=== PATIENT | male | born 1985 | race Caucasian/White ===

== ENCOUNTER 2016-09-30 06:43 | Emergency (ER) | payer OTHER ==
[~2016-09-30] VITALS: Ht 177.8 cm; Wt 100.0 kg
[~2016-09-30 06:43] MED LIST: ZOFRAN4 MG/TAB PO
[2016-09-30] MEDS ORDERED: KEFLEX500 MG PO (07:24)
[2016-09-30] MEDS ORDERED: BENADRYL25 M1 PO (07:24)
[2016-09-30 07:34] VITALS: BP 131/76
== END 2016-09-30 07:34 | disposition home or self-care (01) | DRG 866 ==
LOC: ED 06:43
DX: B34.9 Viral infection, unspecified (principal); K21.9 Gastro-esophageal reflux disease without esophagitis

== ENCOUNTER 2017-01-29 15:16 | Emergency (ER) | payer OTHER ==
[~2017-01-29] VITALS: Ht 177.8 cm; Wt 100.0 kg
[~2017-01-29 15:16] MED LIST changes: +BENADRYL25 M1 PO; +KEFLEX500 MG PO
[2017-01-29] MEDS ORDERED: NEXIUM40 M1 PO (15:37)
[2017-01-29 16:47] LABS: HEMATOCRIT 44.1 % (39.0-50.0); HEMOGLOBIN 15.2 g/dl (14.0-18.0); IMMATURE GRANULOCYTES 0.3 % (0.0-1.0); MEAN CELL VOLUME 88.2 fL CALC (80.0-100.0); MEAN CORPUSCULAR HGB 30.4 pG CALC (26.0-32.0); MEAN CORPUSCULAR HGB CONC 34.5 g/L CALC (32.0-36.0); NEUT# 3.6 thou/uL (1.82-7.42)
[2017-01-29 17:12] LABS: ALBUMIN 4.5 g/dL (3.2-5.0); ALKALINE PHOSPHATASE 67 u/l (38-126); AMYLASE 53 u/l (30-110); ANION GAP 18 (6-22 (CALC)); BILIRUBIN, TOTAL 0.5 mg/dL (0.0-1.4); BUN 14 mg/dL (9-20); BUN/CREATININE RATIO 18 (12-20 (CALC)); CALCIUM 9.7 mg/dL (8.4-10.2); CARBON DIOXIDE 25 mmol/l (22-30); CHLORIDE 105 mmol/l (95-108); CREATININE 0.8 mg/dL (0.7-1.3); GFR > 60 ML/MIN (>=60 (CALC)); GFR FOR AFR.AMER. > 60 ML/MIN (>=60 (CALC)); GLUCOSE 87 mg/dL (75-110); LIPASE 78 u/l (23-300); POTASSIUM 4.7 mmol/l (3.5-5.1); SGOT/AST 34 u/l (17-59); SGPT/ALT 52 u/l (21-72); SODIUM 143 mmol/l (137-146); TOTAL PROTEIN 7.6 g/dL (6.3-8.2)
[2017-01-29] MEDS ORDERED: RANITIDINE 150150 MG PO (18:18)
[2017-01-29 18:24] VITALS: BP 149/70
[2017-01-29 18:53] LABS: URINE BILIRUBIN - DIPSTICK NEGATIVE (NEGATIVE); URINE BLOOD DIPSTICK NEGATIVE (NEGATIVE); URINE CLARITY CLEAR; URINE COLOR YELLOW; URINE GLUCOSE - DIPSTICK NEGATIVE (NEGATIVE); URINE KETONE NEGATIVE (NEGATIVE); URINE LEUK ESTERASE NEGATIVE (NEGATIVE); URINE NITRITE - DIPSTICK NEGATIVE (Negative); URINE PH 5.5 (4.5-8.0); URINE PROTEIN - DIPSTICK NEGATIVE (NEG-TRACE); URINE SPECIFIC GRAVITY 1.025; URINE UROBILINOGEN - DIPSTICK 0.2 E.U./dL (0.2)
== END 2017-01-29 18:45 | disposition home or self-care (01) | DRG 392 ==
LOC: ED 15:16
PROVIDERS: Family Medicine
DX: R10.13 Epigastric pain (principal); K21.9 Gastro-esophageal reflux disease without esophagitis; R10.32 Left lower quadrant pain; R10.12 Left upper quadrant pain
CPT/HCPCS: Q9967

== ENCOUNTER 2017-05-13 07:07 | Emergency (ER) | payer OTHER ==
[~2017-05-13] VITALS: Ht 177.8 cm; Wt 110.0 kg
[~2017-05-13 07:07] MED LIST changes: +NEXIUM40 M1 PO; +RANITIDINE 150150 MG PO
[2017-05-13 07:49] LABS: HEMOGLOBIN 16.1 g/dl (14.0-18.0); IMMATURE GRANULOCYTES 0.5 % (0.0-1.0); MEAN CELL VOLUME 86.1 fL CALC (80.0-100.0); MEAN CORPUSCULAR HGB 30.1 pG CALC (26.0-32.0); NEUT# 10.19 thou/uL (1.82-7.42); RED BLOOD COUNT 5.34 mill/uL (4.70-6.10); RED CELL DISTRI WIDTH 11.9 % (11.5-15.5)
[2017-05-13 08:00] LABS: ALBUMIN 4.9 g/dL (3.2-5.0); ALKALINE PHOSPHATASE 85 u/l (38-126); AMYLASE 57 u/l (30-110); ANION GAP 18 (6-22 (CALC)); BILIRUBIN, TOTAL 0.7 mg/dL (0.0-1.4); BUN 18 mg/dL (9-20); BUN/CREATININE RATIO 20 (12-20 (CALC)); CALCIUM 9.8 mg/dL (8.4-10.2); CARBON DIOXIDE 25 mmol/l (22-30); CHLORIDE 105 mmol/l (95-108); CREATININE 0.9 mg/dL (0.7-1.3); GFR > 60 ML/MIN (>=60 (CALC)); GFR FOR AFR.AMER. > 60 ML/MIN (>=60 (CALC)); GLUCOSE 106 mg/dL (75-110); LIPASE 81 u/l (23-300); POTASSIUM 4.2 mmol/l (3.5-5.1); SGOT/AST 34 u/l (17-59); SGPT/ALT 59 u/l (21-72); SODIUM 143 mmol/l (137-146)
[2017-05-13] MEDS ORDERED: ZOFRAN ODT4 MG PO (09:14)
[2017-05-13] MEDS ORDERED: BACTRIM DS1 TAB PO (09:14)
[2017-05-13] MEDS ORDERED: ULTRAM50 M1 PO (09:14)
[2017-05-13 09:21] LABS: URINE BILIRUBIN - DIPSTICK NEGATIVE (NEGATIVE); URINE BLOOD DIPSTICK NEGATIVE (NEGATIVE); URINE COLOR YELLOW; URINE GLUCOSE - DIPSTICK NEGATIVE (NEGATIVE); URINE KETONE NEGATIVE (NEGATIVE); URINE LEUK ESTERASE NEGATIVE (NEGATIVE); URINE NITRITE - DIPSTICK NEGATIVE (Negative); URINE PROTEIN - DIPSTICK NEGATIVE (NEG-TRACE); URINE UROBILINOGEN - DIPSTICK 0.2 E.U./dL (0.2)
[2017-05-13 09:30] LABS: URINE CLARITY CLEAR
[2017-05-13 11:02] VITALS: BP 115/62
== END 2017-05-13 11:02 | disposition home or self-care (01) | DRG 392 ==
LOC: ED 07:07
PROVIDERS: Emergency Medicine
DX: R10.33 Periumbilical pain (principal); K52.9 Noninfective gastroenteritis and colitis, unspecified; R11.2 Nausea with vomiting, unspecified
CPT/HCPCS: Q9967

== ENCOUNTER 2017-10-23 08:00 | Emergency (ER) | payer OTHER ==
[~2017-10-23] VITALS: Ht 177.8 cm; Wt 115.9 kg
[~2017-10-23 08:00] MED LIST changes: +BACTRIM DS1 TAB PO; +ULTRAM50 M1 PO; +ZOFRAN ODT4 MG PO
[2017-10-23 08:34] LABS: HEMATOCRIT 46.2 % (39.0-50.0); HEMOGLOBIN 15.9 g/dl (14.0-18.0); IMMATURE GRANULOCYTES 0.5 % (0.0-1.0); MEAN CELL VOLUME 86.4 fL CALC (80.0-100.0); MEAN CORPUSCULAR HGB 29.7 pG CALC (26.0-32.0); MEAN CORPUSCULAR HGB CONC 34.4 g/L CALC (32.0-36.0); NEUT# 5.57 thou/uL (1.82-7.42); RED BLOOD COUNT 5.35 mill/uL (4.70-6.10); RED CELL DISTRI WIDTH 11.8 % (11.5-15.5)
[2017-10-23 08:47] LABS: ALBUMIN 4.8 g/dL (3.2-5.0); ALKALINE PHOSPHATASE 80 u/l (38-126); ANION GAP 20 (6-22 (CALC)); BILIRUBIN, TOTAL 0.6 mg/dL (0.0-1.4); BUN 18 mg/dL (9-20); BUN/CREATININE RATIO 20 (12-20 (CALC)); CARBON DIOXIDE 28 mmol/l (22-30); CHLORIDE 99 mmol/l (95-108); CREATININE 0.9 mg/dL (0.7-1.3); GFR > 60 ML/MIN (>=60 (CALC)); GFR FOR AFR.AMER. > 60 ML/MIN (>=60 (CALC)); POTASSIUM 3.9 mmol/l (3.5-5.1); SGOT/AST 53 u/l (17-59); SGPT/ALT 94 u/l (21-72); SODIUM 143 mmol/l (137-146); TOTAL PROTEIN 8.6 g/dL (6.3-8.2)
[2017-10-23 09:31] LABS: URINE BILIRUBIN - DIPSTICK NEGATIVE (NEGATIVE); URINE BLOOD DIPSTICK NEGATIVE (NEGATIVE); URINE COLOR YELLOW; URINE GLUCOSE - DIPSTICK NEGATIVE (NEGATIVE); URINE KETONE NEGATIVE (NEGATIVE); URINE LEUK ESTERASE NEGATIVE (NEGATIVE); URINE NITRITE - DIPSTICK NEGATIVE (Negative); URINE PROTEIN - DIPSTICK NEGATIVE (NEG-TRACE); URINE SPECIFIC GRAVITY <=1.005; URINE UROBILINOGEN - DIPSTICK 0.2 E.U./dL (0.2)
[2017-10-23 09:32] LABS: URINE CLARITY CLEAR
[2017-10-23] MEDS ORDERED: LISINOPRIL10 MG PO (09:40)
[2017-10-23 10:19] VITALS: BP 129/65
== END 2017-10-23 10:10 | disposition home or self-care (01) | DRG 313 ==
LOC: ED 08:00
PROVIDERS: Family Medicine
DX: R07.89 Other chest pain (principal); I10 Essential (primary) hypertension

== ENCOUNTER 2019-02-22 09:43 | Emergency (ER) | payer OTHER ==
[~2019-02-22] VITALS: Ht 177.8 cm; Wt 120.0 kg
[~2019-02-22 09:43] MED LIST changes: +LISINOPRIL10 MG PO
[2019-02-22 10:06] LABS: HEMATOCRIT 42.2 % (39.0-50.0); HEMOGLOBIN 14.4 g/dl (14.0-18.0); IMMATURE GRANULOCYTES 0.2 % (0.0-5.0); MEAN CELL VOLUME 86.5 fL CALC (80.0-100.0); MEAN CORPUSCULAR HGB 29.5 pG CALC (26.0-32.0); MEAN CORPUSCULAR HGB CONC 34.1 g/L CALC (32.0-36.0); NEUT# 4.03 thou/uL (1.82-7.42); RED BLOOD COUNT 4.88 mill/uL (4.70-6.10); RED CELL DISTRI WIDTH 12.1 % (11.5-15.5)
[2019-02-22 10:32] LABS: ANION GAP 15 (6-22 (CALC)); BUN 12 mg/dL (9-20); BUN/CREATININE RATIO 13 (12-20 (CALC)); CARBON DIOXIDE 25 mmol/l (22-30); CHLORIDE 105 mmol/l (95-108); CREATININE 0.9 mg/dL (0.7-1.3); GFR > 60 ML/MIN (>=60 (CALC)); GFR FOR AFR.AMER. > 60 ML/MIN (>=60 (CALC)); POTASSIUM 3.8 mmol/l (3.5-5.1); SODIUM 142 mmol/l (137-146)
[2019-02-22 11:44] VITALS: BP 114/66
== END 2019-02-22 11:45 | disposition home or self-care (01) | DRG 313 ==
LOC: ED 09:43
PROVIDERS: Family Medicine
DX: R07.9 Chest pain, unspecified (principal); R00.2 Palpitations; I10 Essential (primary) hypertension